=== PATIENT | female | born 1955 | race Caucasian/White ===

== ENCOUNTER 2024-08-13 21:46 | Emergency (ER) | payer MEDICARE, SELFPAY ==
[2024-08-13 21:49] VITALS: BP 147/74
[2024-08-13 22:04] LABS: % Basophils 0.8 % (0-2); % Eosinophils 1.9 % (0-6); % Immature Granulocytes 0.2 % (0-0.5); % Lymphocytes 27.6 % (20.5-51.1); % Monocytes 6.3 % (1.7-9.3); % Neutrophils 63.2 % (42.2-75.2); Absolute Basophils 0.1 10^3/uL (0-0.2); Absolute Eosinophils 0.1 10^3/uL (0-0.7); Absolute Lymphocytes 1.8 10^3/uL (1.2-3.4); Absolute Monocytes 0.4 10^3/uL (0.1-0.6); Hematocrit 37.8 % (37.0-47.0); Mean Corp Hgb Conc. 34.4 g/dL (33.0-37.0); Mean Corpuscular Hgb 30.4 pg (27.0-31.0); Mean Corpuscular Volume 88.3 fL (81.0-99.0); Mean Platelet Volume 10.3 fL (7.4-10.4); Nucleated Red Blood Cells % 0 %; Platelet Count 194 10^3/uL (130-400); Red Blood Cell Count 4.28 10^6/uL (4.20-5.40); Red Cell Dist. Width 12.3 % (11.5-14.5); White Blood Cell Count 6.3 10^3/uL (4.8-10.8)
[2024-08-13 22:23] LABS: ALT (SGPT) 22 U/L (0-35); AST (SGOT) 35 U/L (14-36); Albumin 4.9 g/dl (3.5-5.0); Alkaline Phosphatase 55 U/L (38-126); Blood Urea Nitrogen 16 mg/dl (7-17); Calcium 9.8 mg/dl (8.4-10.2); Carbon Dioxide 26 mmol/L (22-30); Chloride 97 mmol/L (98-107); Glucose 104 mg/dl (70-99); Potassium 3.8 mmol/L (3.5-5.1); Sodium 138 mmol/L (135-145); Total Bilirubin 0.8 mg/dl (0.2-1.3); Total Protein 7.5 g/dl (6.3-8.2); eGFR > 60.00
[2024-08-13 22:28] LABS: Troponin I < 0.012 ng/ml
[2024-08-14 00:04] VITALS: BMI 19.7
[2024-08-14 00:11] VITALS: BP 127/69
--- NOTE | 2024-08-14 00:38 | ED.GENMED ---
History of Present Illness
General
Chief Complaint: Heart Rate Problem
Time Seen by Provider: 08/14/24 00:06
History of Present Illness
History of Present Illness:
69-year-old female with history of ulcerative colitis presenting to the emergency department for palpitations. Patient reports that she has been having intermittent palpitations for the past 3 weeks. Denies any known trigger to the palpitations,
however when they come on she feels weak and feels tingling in her extremities. Denies any known cardiac history, however reports similar symptoms about 2 years ago, had a negative stress test and Holter monitor. Also reports that she has seen her
primary care doctor twice in the past 3 weeks, had normal laboratory analysis including electrolyte panel and TSH. She also had a negative Lyme test. She denies any associated chest pain or difficulty breathing. She denies fever or systemic
symptoms. She denies any syncopal episodes or additional acute medical complaints
Past History
Past History
ED Past Medical History: Other (pneumonia with pleural effusion 1996, pneumonia 2017) and Other (Ulcerative colitis)
ED Past Surgical History: Other (Left nephrectomy)
Social History
Tobacco: Non-smoker
Personal:
Family History
Family History: Hypertension (Mother)
Phy Exam
Physical Exam
Physical Exam:
General: Well-appearing, no clinical signs of dehydration, nontoxic and in no acute distress
HEENT: protecting airway
Neck: appears supple
CV: Normal heart rate, regular rhythm, no evidence of cyanosis
Resp: No accessory muscle use, no increased work of breathing, lungs clear to auscultation bilaterally
Abd: Soft and non-distended, no tenderness to palpation
Extremities: No deformities, no swelling
Neuro: alert, no focal neurologic deficit
: deferred
Rectal: deferred
Psych: Normal affect
Skin: Intact
Course
Orders/Labs/Results
Orders:
Orders
08/13/24 21:47
Electrocardiogram (*1) Urgent
Reason for Study: Palpitations
EKG- Treatment ONCE
08/13/24 21:53
Complete Blood Count/With Diff Urgent
Comprehensive Metabolic Panel Urgent
Troponin I Urgent
Abnormal Lab Results
08/13/24
21:53
Chloride 97 L mmol/L
(98-107)
Glucose 104 H mg/dl
(70-99)
08/13/24 21:53
08/13/24 21:53
Vital Signs
Initial and Last Documented VS:
Initial Vital Signs
Temp Pulse Resp BP Pulse Ox
97.7 F 80 16 147/74 98
08/13/24 21:49 08/13/24 21:49 08/13/24 21:49 08/13/24 21:49 08/13/24 21:49
Last Documented Vital Signs
Temp Pulse Resp BP Pulse Ox
97.7 F 70 20 127/69 99
08/13/24 21:49 08/14/24 00:11 08/14/24 00:11 08/14/24 00:11 08/14/24 00:11
MDM/Problems Addressed
MDM/Problems Addressed:
69-year-old female presenting to the emergency department for 3 weeks of intermittent palpitations. Vital signs on arrival are normal.
On exam patient is well-appearing, no acute distress or discomfort. Patient with normal heart rate. EKG obtained on arrival, sinus rhythm without acute ischemia. Patient arrives with outpatient laboratory analysis, normal TSH, negative Lyme
titer, negative electrolyte panel. Labs repeated today, again unremarkable, negative troponin. Unclear etiology of patient's symptoms given that she is not currently having the symptoms, not catching any abnormal rhythm on EKG or monitor. On
review of EMR, patient had a stress test 07/15 that was normal, as well as a Holter monitor 07/04. Patient has never formally seen cardiology. She remains hemodynamically stable, and for this reason feel stable for discharge with outpatient
cardiology follow-up. Will provide information. Strict return precautions communicated and patient verbalized understanding
*EKG
Interpreted by ED Provider?: Yes
EKG Intrepretation Date: 08/14/24
EKG Intrepretation Time: 01:39
Interpretation: normal
Comparison EKG: no changes (11/26/23)
Heart Rate: 74
Rate: normal
Rhythm: sinus
[place]: normal axis
Interval: normal interval
QRS Pattern: normal QRS
Ischemia: no ischemia
*Critical Care Note
Total Time (30-74mins, 75-104mins- exclusive of procedures): Not Applicable
ED Attending Note
-
Portions of this chart may have been created with voice recognition software.� Occasional wrong word or��sound alike� substitutions may have occurred due to the inherent limitations of voice recognition software.
Discharge Plan
Departure
Patient Disposition: Home (Routine Discharge)
Date of Disposition: 08/14/24
Time of Disposition: 01:33
Patient with high blood pressure during this ER visit?: No
Condition: Good
Discharge Problem:
Heart palpitations
Instructions: Palpitations (DC)
Prescriptions:
No Action
mesalamine
1.5 g PO DAILY
Rx Instructions:
unsure of dose
mesalamine
1 applicator [place] HS
Rx Instructions:
patient unsure of dose
Referrals:
Shaila Kaur MD [Family Provider] -
Dmitri Montgomery MD [Active] - (palpitations)
Activity Restrictions/Additional Instructions:
You were seen in the emergency department for palpitations
You were found to have normal heart rate, EKG, laboratory analysis
Please establish care with a keno writer for potential Holter monitoring
Return to the emergency department for any worsening of your symptoms, or any development of chest pain, difficulty breathing, abdominal pain with persistent vomiting and inability to tolerate food or liquid by mouth (concern for dehydration),
weakness, headache or confusion, fever greater than 100.4, or any additional symptoms that are concerning to you.
Thank you for choosing [facility].
Interventions
Interventions:
*Risk Screen - Suicide Last Done: 08/13/24 21:47
*General Assessment Last Done: 08/14/24 00:11
ED- Fall Risk Assessment Last Done: 08/14/24 00:11
*ED COVID-19 Vaccine History Last Done: 08/14/24 00:11
ED- Cardiac Assessment Last Done: 08/14/24 00:11
ED- Pulmonary Assessment Last Done: 08/14/24 00:11
Discharge Date and Time
Print Language: CUBAN
[2024-08-14 01:47] VITALS: BP 117/60
[2024-08-14 01:50] VITALS: BP 117/60
== END 2024-08-14 02:03 | disposition home or self-care (01) ==
LOC: EMR 21:46
PROVIDERS: Emergency Medicine; EMERGENCY PHYSICIAN Student in an Organized Health Care Education/Training Program; FAMILY PHYSICIAN Family Medicine
DX: R00.2 Palpitations (principal); R53.1 Weakness; R20.2 Paresthesia of skin; K51.90 Ulcerative colitis, unspecified, without complications; Z87.01 Personal history of pneumonia (recurrent); Z90.5 Acquired absence of kidney
CPT/HCPCS: 99283; 80053; 84484; 85025; 93005

== ENCOUNTER → 2024-09-14 07:11 | Outpatient (REF) | payer MEDICARE, SELFPAY | LOC: RCS 07:11 | PROVIDERS: ATTENDING PHYSICIAN Internal Medicine Cardiovascular Disease; FAMILY PHYSICIAN Family Medicine | DX: R07.9 Chest pain, unspecified (principal) | CPT/HCPCS: 93017 ==

== ENCOUNTER → 2024-09-17 07:58 | Outpatient (REF) | payer MEDICARE, SELFPAY | LOC: RCS 07:58 | PROVIDERS: ATTENDING PHYSICIAN Internal Medicine Cardiovascular Disease; FAMILY PHYSICIAN Family Medicine | DX: R07.9 Chest pain, unspecified (principal) | CPT/HCPCS: 93306 ==

== ENCOUNTER → 2024-12-09 08:16 | Outpatient (REF) | payer MEDICARE, SELFPAY | LOC: RAD 08:16 | PROVIDERS: ATTENDING PHYSICIAN Family Medicine | DX: M85.89 Other specified disorders of bone density and structure, multiple sites (principal) | CPT/HCPCS: 77080 ==

== ENCOUNTER → 2025-06-14 15:33 | Outpatient (REF) | payer MEDICARE, SELFPAY | LOC: WDC 15:33 | PROVIDERS: ATTENDING PHYSICIAN Family Medicine | DX: Z12.31 Encounter for screening mammogram for malignant neoplasm of breast (principal) | CPT/HCPCS: 77063; 77067 ==